=== PATIENT | male | born 1995 | race Hispanic/Latino ===

== ENCOUNTER 2023-05-15 11:18 | Inpatient (IN) | payer OTHER, SELFPAY ==
[~2023-05-15] VITALS: Ht 172.7 cm; Wt 104.5 kg
[2023-05-15] MEDS ORDERED: ACET-683 PO (11:38)
[2023-05-15 12:24] LABS: BASO % 0.1 % (0.0-1.0); EOS % 0.1 % (0.0-3.0); HEMATOCRIT 40.7 % (42.0-52.0); HEMOGLOBIN 13.6 g/dl (13.5-17.5); LYMPH # 1.7 10^3/uL (1.5-5.0); LYMPH % 9.7 % (24.0-44.0); MEAN CORPUSCULAR HEMOGLOBIN 29.1 pg (27.0-33.0); MEAN CORPUSCULAR HGB CONC 33.4 g/dl (32.0-36.5); MEAN CORPUSCULAR VOLUME 87.2 fl (80.0-96.0); MONO % 9.9 % (2.0-8.0); NEUTROPHILS # 13.7 10^3/uL (1.5-8.5); NEUTROPHILS % 79.7 % (36.0-66.0); PLATELET COUNT, AUTOMATED 282 10^3/uL (150-450); RED BLOOD COUNT 4.67 10^6/uL (4.30-6.10); WHITE BLOOD COUNT 17.2 10^3/uL (4.0-10.0)
[2023-05-15 12:57] LABS: ALBUMIN 3.5 G/DL (3.2-5.2); ALKALINE PHOSPHATASE 81 U/L (46-116); ALT/SGPT 29 U/L (7.0-40); AST/SGOT 38 U/L (<34); BILIRUBIN,DIRECT 0.2 MG/DL (<0.4); BILIRUBIN,TOTAL 0.5 MG/DL (0.3-1.2); BLOOD UREA NITROGEN 14 MG/DL (9-23); CARBON DIOXIDE LEVEL 24 MMOL/L (20-31); CHLORIDE LEVEL 104 MMOL/L (98-107); CREATININE FOR GFR 0.77 MG/DL (0.70-1.30); GLOMERULAR FILTRATION RATE > 60.0 (>60); GLUCOSE, FASTING 98 MG/DL (60-100); LIPASE 23 U/L (12-53); POTASSIUM SERUM 4.9 MMOL/L (3.5-5.1); SODIUM LEVEL 138 MMOL/L (136-145); TOTAL PROTEIN 7.6 G/DL (5.7-8.2)
[2023-05-15] MEDS ORDERED: NS 1,000 ML IV ONE (13:00)
[2023-05-15] MEDS ORDERED: ONDANSETRON 4MG 2ML VIAL IV ONE (13:00)
[2023-05-15] MEDS ORDERED: MORPHINE 4 MG/ML 1ML VIAL IV ONE (13:00)
[2023-05-15] MEDS ORDERED: ISOVUE-370 76% 100ML VIAL As Ordered ONE (13:06)
[2023-05-15 13:31] LABS: MONO # 1.7 10^3/uL (0.0-0.8)
[2023-05-15] MEDS ORDERED: PIPERACILLIN/TAZOBACTAM SOD 4.5 GM in D5W MINI-BAG PLUS 50 ML IV ONE (14:55)
[2023-05-15] MEDS ORDERED: MED REC IN PROGRESS XX SCH (15:05)
[2023-05-15] MEDS ORDERED: ACET-897 PO (15:07)
[2023-05-15] MEDS ORDERED: HOME MED LIST COMPLETE! XX SCH (15:10)
[2023-05-15] MEDS ORDERED: ONDANSETRON 4MG 2ML VIAL IV PRN (16:30)
[2023-05-15] MEDS: LR 1,000 ML IV SCH (16:30)
[2023-05-15] MEDS ORDERED: PERCOCET 5MG/325MG TAB PO PRN (16:30)
[2023-05-15 18:00] VITALS: BP 119/78; TEMP 97.9; O2SAT 98
[2023-05-15 18:59] LABS: ALBUMIN 3.3 G/DL (3.2-5.2); ALKALINE PHOSPHATASE 77 U/L (46-116); ALT/SGPT 24 U/L (7.0-40); AST/SGOT 14 U/L (<34); BILIRUBIN,TOTAL 0.6 MG/DL (0.3-1.2); BLOOD UREA NITROGEN 12 MG/DL (9-23); CALCIUM LEVEL 8.8 MG/DL (8.5-10.1); CARBON DIOXIDE LEVEL 26 MMOL/L (20-31); CHLORIDE LEVEL 103 MMOL/L (98-107); CREATININE FOR GFR 0.73 MG/DL (0.70-1.30); GLOMERULAR FILTRATION RATE > 60.0 (>60); GLUCOSE, FASTING 89 MG/DL (60-100); POTASSIUM SERUM 3.9 MMOL/L (3.5-5.1); SODIUM LEVEL 138 MMOL/L (136-145); TOTAL PROTEIN 7.2 G/DL (5.7-8.2)
[2023-05-15 20:14] VITALS: BP 122/70; TEMP 97.1
[2023-05-15] MEDS: KETOROLAC 30 MG/ML 1ML VIAL IV PRN (20:34)
[2023-05-15] MEDS: PIPERACILLIN/TAZOBACTAM SOD 3.375 GM in D5W MINI-BAG PLUS 50 ML IV SCH (22:14)
[2023-05-16] MEDS: LR 1,000 ML IV SCH ×3 (01:00→16:00)
[2023-05-16 02:00] VITALS: BP 126/62; TEMP 98.7; O2SAT 99
[2023-05-16] MEDS: PIPERACILLIN/TAZOBACTAM SOD 3.375 GM in D5W MINI-BAG PLUS 50 ML IV SCH ×4 (04:54→22:20)
[2023-05-16 05:55] VITALS: BP 121/68; TEMP 98.8; O2SAT 98
[2023-05-16 07:52] LABS: BASO % 0.1 % (0.0-1.0); HEMATOCRIT 36.9 % (42.0-52.0); HEMOGLOBIN 12.4 g/dl (13.5-17.5); LYMPH # 1.1 10^3/uL (1.5-5.0); LYMPH % 8.1 % (24.0-44.0); MEAN CORPUSCULAR HEMOGLOBIN 29.7 pg (27.0-33.0); MEAN CORPUSCULAR HGB CONC 33.6 g/dl (32.0-36.5); MEAN CORPUSCULAR VOLUME 88.5 fl (80.0-96.0); MONO # 1.3 10^3/uL (0.0-0.8); MONO % 9.8 % (2.0-8.0); NEUTROPHILS # 10.6 10^3/uL (1.5-8.5); NEUTROPHILS % 81.7 % (36.0-66.0); PLATELET COUNT, AUTOMATED 235 10^3/uL (150-450); RED BLOOD COUNT 4.17 10^6/uL (4.30-6.10)
[2023-05-16 08:21] LABS: BLOOD UREA NITROGEN 17 MG/DL (9-23); CALCIUM LEVEL 8.4 MG/DL (8.5-10.1); CARBON DIOXIDE LEVEL 26 MMOL/L (20-31); CHLORIDE LEVEL 105 MMOL/L (98-107); CREATININE FOR GFR 1.04 MG/DL (0.70-1.30); GLOMERULAR FILTRATION RATE > 60.0 (>60); GLUCOSE, FASTING 97 MG/DL (60-100); POTASSIUM SERUM 4.1 MMOL/L (3.5-5.1); SODIUM LEVEL 138 MMOL/L (136-145)
[2023-05-16] MEDS ORDERED: ENOXAPARIN 40MG/0.4ML SYRINGE (J1650 PER 10MG) SC SCH (09:00)
[2023-05-16] MEDS: PANTOPRAZOLE 40MG TAB (PROTONIX) PO SCH (09:09)
[2023-05-16] MEDS: KETOROLAC 30 MG/ML 1ML VIAL IV PRN ×2 (09:11→20:44)
[2023-05-16 12:00] VITALS: BP 112/64; TEMP 97.5; O2SAT 98
[2023-05-16 14:15] VITALS: BP 119/72; TEMP 98.9; O2SAT 98
[2023-05-16] MEDS: ACETAMINOPHEN TAB 650MG DOSE (2X325MG) PO PRN (15:01)
[2023-05-16 21:07] VITALS: BP 116/66; TEMP 98.2; O2SAT 98
[2023-05-17 02:00] VITALS: BP 119/70; TEMP 97.9; O2SAT 98
[2023-05-17] MEDS: LR 1,000 ML IV SCH ×3 (03:00→16:30)
[2023-05-17] MEDS: PIPERACILLIN/TAZOBACTAM SOD 3.375 GM in D5W MINI-BAG PLUS 50 ML IV SCH ×4 (04:30→23:26)
[2023-05-17 05:54] VITALS: BP 115/66; TEMP 98.4; O2SAT 97
[2023-05-17 06:43] LABS: HEMATOCRIT 34.8 % (42.0-52.0); HEMOGLOBIN 11.7 g/dl (13.5-17.5); MEAN CORPUSCULAR HEMOGLOBIN 29.8 pg (27.0-33.0); MEAN CORPUSCULAR HGB CONC 33.6 g/dl (32.0-36.5); MEAN CORPUSCULAR VOLUME 88.5 fl (80.0-96.0); PLATELET COUNT, AUTOMATED 231 10^3/uL (150-450); RED BLOOD COUNT 3.93 10^6/uL (4.30-6.10); WHITE BLOOD COUNT 11.9 10^3/uL (4.0-10.0)
[2023-05-17 07:06] LABS: BLOOD UREA NITROGEN 14 MG/DL (9-23); CALCIUM LEVEL 8.2 MG/DL (8.5-10.1); CARBON DIOXIDE LEVEL 26 MMOL/L (20-31); CHLORIDE LEVEL 103 MMOL/L (98-107); CREATININE FOR GFR 1.01 MG/DL (0.70-1.30); GLOMERULAR FILTRATION RATE > 60.0 (>60); GLUCOSE, FASTING 92 MG/DL (60-100); POTASSIUM SERUM 3.8 MMOL/L (3.5-5.1); SODIUM LEVEL 138 MMOL/L (136-145)
[2023-05-17] MEDS: KETOROLAC 30 MG/ML 1ML VIAL IV PRN ×2 (07:39→14:59)
[2023-05-17] MEDS: PANTOPRAZOLE 40MG TAB (PROTONIX) PO SCH (09:08)
[2023-05-17 10:25] VITALS: BP 114/65; TEMP 98.1; O2SAT 98
[2023-05-17 13:55] VITALS: BP 115/65; TEMP 99.7; O2SAT 99
[2023-05-17 18:20] VITALS: BP 118/69; TEMP 98.8; O2SAT 97
[2023-05-17] MEDS: ACETAMINOPHEN TAB 650MG DOSE (2X325MG) PO PRN (19:53)
[2023-05-17 21:11] VITALS: BP 117/71; TEMP 98.8; O2SAT 98
[2023-05-18] MEDS: LR 1,000 ML IV SCH ×4 (00:45→23:52)
[2023-05-18 02:00] VITALS: BP 112/69; TEMP 98.5; O2SAT 97
[2023-05-18] MEDS: PIPERACILLIN/TAZOBACTAM SOD 3.375 GM in D5W MINI-BAG PLUS 50 ML IV SCH ×4 (04:57→22:32)
[2023-05-18 06:00] VITALS: BP 109/59; TEMP 99.1; O2SAT 98
[2023-05-18 06:37] LABS: HEMATOCRIT 33.9 % (42.0-52.0); HEMOGLOBIN 11.3 g/dl (13.5-17.5); MEAN CORPUSCULAR HEMOGLOBIN 29.5 pg (27.0-33.0); MEAN CORPUSCULAR HGB CONC 33.3 g/dl (32.0-36.5); MEAN CORPUSCULAR VOLUME 88.5 fl (80.0-96.0); PLATELET COUNT, AUTOMATED 234 10^3/uL (150-450); RED BLOOD COUNT 3.83 10^6/uL (4.30-6.10); WHITE BLOOD COUNT 13.8 10^3/uL (4.0-10.0)
[2023-05-18 07:13] LABS: BLOOD UREA NITROGEN 8 MG/DL (9-23); CALCIUM LEVEL 7.7 MG/DL (8.5-10.1); CARBON DIOXIDE LEVEL 24 MMOL/L (20-31); CHLORIDE LEVEL 107 MMOL/L (98-107); CREATININE FOR GFR 0.84 MG/DL (0.70-1.30); GLOMERULAR FILTRATION RATE > 60.0 (>60); GLUCOSE, FASTING 105 MG/DL (60-100); POTASSIUM SERUM 3.7 MMOL/L (3.5-5.1); SODIUM LEVEL 139 MMOL/L (136-145)
[2023-05-18] MEDS: PANTOPRAZOLE 40MG TAB (PROTONIX) PO SCH (09:10)
[2023-05-18] MEDS: ACETAMINOPHEN TAB 650MG DOSE (2X325MG) PO PRN ×3 (09:18→20:16)
[2023-05-18 14:30] VITALS: BP 115/67; TEMP 101.1; O2SAT 98
[2023-05-18 16:20] VITALS: TEMP 98.2
[2023-05-18 20:17] VITALS: BP 114/57; TEMP 99; O2SAT 96
[2023-05-18] MEDS: KETOROLAC 30 MG/ML 1ML VIAL IV PRN (23:59)
[2023-05-19 00:46] VITALS: BP 123/66; TEMP 97.7; O2SAT 97
[2023-05-19] MEDS: PIPERACILLIN/TAZOBACTAM SOD 3.375 GM in D5W MINI-BAG PLUS 50 ML IV SCH ×4 (04:54→22:11)
[2023-05-19 06:00] VITALS: BP 120/67; TEMP 98.2; O2SAT 99
[2023-05-19 07:57] LABS: HEMATOCRIT 33.4 % (42.0-52.0); HEMOGLOBIN 11.2 g/dl (13.5-17.5); MEAN CORPUSCULAR HEMOGLOBIN 29.5 pg (27.0-33.0); MEAN CORPUSCULAR HGB CONC 33.5 g/dl (32.0-36.5); MEAN CORPUSCULAR VOLUME 87.9 fl (80.0-96.0); PLATELET COUNT, AUTOMATED 236 10^3/uL (150-450); WHITE BLOOD COUNT 12.3 10^3/uL (4.0-10.0)
[2023-05-19 08:12] LABS: BLOOD UREA NITROGEN 5 MG/DL (9-23); CARBON DIOXIDE LEVEL 26 MMOL/L (20-31); CHLORIDE LEVEL 105 MMOL/L (98-107); CREATININE FOR GFR 0.81 MG/DL (0.70-1.30); GLOMERULAR FILTRATION RATE > 60.0 (>60); GLUCOSE, FASTING 96 MG/DL (60-100); POTASSIUM SERUM 3.8 MMOL/L (3.5-5.1); SODIUM LEVEL 139 MMOL/L (136-145)
[2023-05-19] MEDS: PANTOPRAZOLE 40MG TAB (PROTONIX) PO SCH (08:55)
[2023-05-19] MEDS: LR 1,000 ML IV SCH ×2 (08:56→16:04)
[2023-05-19] MEDS: ACETAMINOPHEN TAB 650MG DOSE (2X325MG) PO PRN ×3 (08:58→19:49)
[2023-05-19 09:50] VITALS: BP 121/59; TEMP 98.3; O2SAT 99
[2023-05-19 14:08] VITALS: BP 117/65; TEMP 97.6; O2SAT 98
[2023-05-19 22:17] VITALS: BP 120/67; TEMP 97.7; O2SAT 99
[2023-05-20] MEDS: PIPERACILLIN/TAZOBACTAM SOD 3.375 GM in D5W MINI-BAG PLUS 50 ML IV SCH ×2 (03:29→10:00)
[2023-05-20] MEDS: LR 1,000 ML IV SCH (03:29)
[2023-05-20 05:55] VITALS: BP 127/69; TEMP 98.1; O2SAT 97
[2023-05-20 06:51] LABS: HEMATOCRIT 34.2 % (42.0-52.0); HEMOGLOBIN 11.2 g/dl (13.5-17.5); MEAN CORPUSCULAR HEMOGLOBIN 29.4 pg (27.0-33.0); MEAN CORPUSCULAR HGB CONC 32.7 g/dl (32.0-36.5); MEAN CORPUSCULAR VOLUME 89.8 fl (80.0-96.0); PLATELET COUNT, AUTOMATED 281 10^3/uL (150-450); RED BLOOD COUNT 3.81 10^6/uL (4.30-6.10); WHITE BLOOD COUNT 7.6 10^3/uL (4.0-10.0)
[2023-05-20 07:16] LABS: BLOOD UREA NITROGEN < 5 MG/DL (9-23); CALCIUM LEVEL 8.4 MG/DL (8.5-10.1); CARBON DIOXIDE LEVEL 29 MMOL/L (20-31); CHLORIDE LEVEL 106 MMOL/L (98-107); CREATININE FOR GFR 0.86 MG/DL (0.70-1.30); GLOMERULAR FILTRATION RATE > 60.0 (>60); GLUCOSE, FASTING 97 MG/DL (60-100); POTASSIUM SERUM 3.9 MMOL/L (3.5-5.1); SODIUM LEVEL 141 MMOL/L (136-145)
[2023-05-20] MEDS: PANTOPRAZOLE 40MG TAB (PROTONIX) PO SCH (08:35)
[2023-05-20] MEDS: ACETAMINOPHEN TAB 650MG DOSE (2X325MG) PO PRN (08:38)
[2023-05-20] MEDS ORDERED: ISOVUE-370 76% 100ML VIAL As Ordered ONE (09:07)
[2023-05-20 10:20] VITALS: BP 126/66; TEMP 98; O2SAT 98
[2023-05-20] MEDS: metroNIDAZOLE (FLAGYL) 500MG TABLET PO SCH ×2 (13:49→21:51)
[2023-05-20 13:59] VITALS: BP 125/74; TEMP 97.9; O2SAT 99
[2023-05-20] MEDS: CIPROFLOXACIN 500MG TABLET PO SCH (18:17)
[2023-05-20 22:00] VITALS: BP 123/63; TEMP 97.5; O2SAT 98
[2023-05-21 02:00] VITALS: BP 113/58; TEMP 97.1; O2SAT 98
[2023-05-21] MEDS: metroNIDAZOLE (FLAGYL) 500MG TABLET PO SCH ×2 (05:29→13:12)
[2023-05-21] MEDS: CIPROFLOXACIN 500MG TABLET PO SCH (05:29)
[2023-05-21 06:00] VITALS: BP 114/60; TEMP 97.5; O2SAT 99
[2023-05-21 06:22] LABS: HEMATOCRIT 34.3 % (42.0-52.0); HEMOGLOBIN 11.5 g/dl (13.5-17.5); MEAN CORPUSCULAR HEMOGLOBIN 29.9 pg (27.0-33.0); MEAN CORPUSCULAR HGB CONC 33.5 g/dl (32.0-36.5); MEAN CORPUSCULAR VOLUME 89.1 fl (80.0-96.0); PLATELET COUNT, AUTOMATED 336 10^3/uL (150-450); RED BLOOD COUNT 3.85 10^6/uL (4.30-6.10); WHITE BLOOD COUNT 5.1 10^3/uL (4.0-10.0)
[2023-05-21 06:45] LABS: BLOOD UREA NITROGEN 6 MG/DL (9-23); CALCIUM LEVEL 8.6 MG/DL (8.5-10.1); CARBON DIOXIDE LEVEL 27 MMOL/L (20-31); CHLORIDE LEVEL 108 MMOL/L (98-107); CREATININE FOR GFR 0.75 MG/DL (0.70-1.30); GLOMERULAR FILTRATION RATE > 60.0 (>60); GLUCOSE, FASTING 95 MG/DL (60-100); POTASSIUM SERUM 3.9 MMOL/L (3.5-5.1); SODIUM LEVEL 142 MMOL/L (136-145)
[2023-05-21] MEDS: PANTOPRAZOLE 40MG TAB (PROTONIX) PO SCH (08:42)
[2023-05-21 10:00] VITALS: BP 120/75; TEMP 97.6; O2SAT 99
[2023-05-21] MEDS ORDERED: METR-265 PO (14:21)
[2023-05-21] MEDS ORDERED: CIPR500T39 PO (14:21)
[2023-05-21] MEDS ORDERED: PERCOCET PO (14:21)
[2023-05-21 14:30] VITALS: BP 146/74; TEMP 98.1; O2SAT 99
== END 2023-05-21 14:55 | disposition home or self-care (01) | DRG 871 ==
LOC: M ED 11:18 → M ED INP 16:28 → M MS5PR 18:00
PROVIDERS: ADMIT Surgery; ATTEND Surgery
DX: A41.9 Sepsis, unspecified organism (principal); K35.32 Acute appendicitis with perforation, localized peritonitis, and gangrene, without abscess; K57.20 Diverticulitis of large intestine with perforation and abscess without bleeding

== ENCOUNTER 2023-08-07 08:28 | Day surgery (SDC) | payer OTHER ==
[~2023-08-07] VITALS: Ht 172.7 cm; Wt 91.6 kg
[~2023-08-07 08:28] MED LIST: ACET-683 PO; ACET-897 PO; CIPR500T39 PO; METR-265 PO; PERCOCET PO
[2023-08-07] MEDS: NS 1,000 ML IV ONE (08:43)
[2023-08-07] MEDS ORDERED: propofoL 200 MG/20 ML VIAL As Ordered ONE (09:05)
[2023-08-07 09:21] VITALS: TEMP 97.3
[2023-08-07 09:41] VITALS: BP 117/59; O2SAT 100
== END 2023-08-07 09:46 | disposition home or self-care (01) ==
LOC: M OPP 08:28
PROVIDERS: ATTEND Surgery
DX: R10.32 Left lower quadrant pain (principal); Z87.891 Personal history of nicotine dependence; Z53.8 Procedure and treatment not carried out for other reasons